=== PATIENT | male | born 1955 | race Caucasian/White ===

== ENCOUNTER → 2016-11-24 | Outpatient (CLI) | payer BC, OTHER ==
[~2016-11-24] VITALS: Ht 175.3 cm; Wt 59.4 kg
[~2016-11-24] MED LIST: ELIQUIS5 MG PO; FERROUS SULFAT325 M2 ORAL; FOLIC ACID-VIT1 EAC1 PO; LEVOTHYROXINE200 MCG IV; SYNTHROID88 MCG ORAL; TESTOSTERONE5 G1 MC; VITAMIN D1000 UNI1 ORAL; VITAMIN D5000 UNI1 PO
--- NOTE | 2016-11-24 14:07 | GI Initial Consult Note ---
History of Present Illness General Date patient seen: Nov 24, 2016 Time patient seen: 09:00 Referring physician: RISHABH Reason for Consultation: SBCE Present Illness HPI 61 year old male patient seen by Dr. Landeros at [facility] where he was being followed. The patient is s/p EGD/Colonoscopy on 08/15/2016 to evaluate anemia with hx of iron deficieny and portal vein thrombosis. Operative findings as followes: - medium sized HH - gastritis, s/p biopsy - one colonic polyp - internal/external hemorrhoids The patient presents today for SB capsule endoscopy to further evaluate anemia. s/p Peritoneal mass, biopsy >> moderately differentiated adenocarcinoma present ; see full report in chart. s/p Abdominal U/S >> large ascities, portal vein thrombosis, splenic vein thrombosis Home Meds Active Scripts Ferrous Sulfate (FERROUS SULFATE) 325 Mg Tablet., 325 MG ORAL DAILY, #30 TAB 0 Refills Prov:Nida Parmar N.P. 11/24/16 Reported Medications Testosterone (TESTOSTERONE) Unknown Strength Powder, MC DAILY, GM 11/24/16 Levothyroxine Sodium* (LEVOTHYROXINE SODIUM) Unknown Strength Vial, IV DAILY, VIAL 11/24/16 Cyanocobalamin/Fa/Pyridoxine (FOLIC ACID-VIT B6-VIT B12 TAB) 1 Each Tablet, PO QOD, TAB 11/24/16 Cholecalciferol (Vitamin D3)* (VITAMIN D*) 1,000 Unit Tablet, 5000 UNIT ORAL DAILY, #30 TAB 11/24/16 Apixaban (ELIQUIS) 5 Mg Tablet, 5 MG PO BID, TAB 11/24/16 Allergies: Coded Allergies: No Known Allergies (Unverified , 11/24/16) Patient History PMH Narrative hydrocele Vit D deficiency PSHx Undescended testicle, required surgery Social History: Denies: alcohol use, drug use, other, smoking Review of Systems All Other Systems: negative except mentioned in HPI Physical Exam T 98.3 BP 109/68 P 63 100 RA HT 5'9 WT 131 General Appearance: well appearing, no apparent distress, alert Head: normocephalic EENT: normal ENT inspection Neck: supple Respiratory: normal breath sounds, no respiratory distress Cardiovascular: normal rate Gastrointestinal: normal inspection, non tender, soft, normal bowel sounds Rectal: deferred Musculoskeletal: normal inspection, back normal Neurologic: normal inspection, alert, oriented x3 Psychiatric: normal inspection, judgement/insight normal, memory normal Skin: normal inspection, normal color, no rash Lymphatic: normal inspection, no adenopathy GI: Plan Problems: (1) Anemia (2) Portal vein thrombosis (3) Ascites (4) Iron deficiency (5) Abdominal pain Plan SBCE today pt to return tomorrow for hardware removal will contact patient s/p results RTC prn Seen with Dr. Landeros. Thank you for referring this kind patient. Nida Parmar N.P. Nov 24, 2016 14:07
[2016-11-24 16:01] VITALS: BP 109/68
== END | disposition home or self-care (01) ==
LOC: PAN 09:06
DX: I81 Portal vein thrombosis (principal); D64.9 Anemia, unspecified; R18.8 Other ascites; E61.1 Iron deficiency; R10.9 Unspecified abdominal pain

== ENCOUNTER → 2016-11-25 | Day surgery (SDC) | payer BC, OTHER ==
[2016-11-25] VITALS (8 sets, daily range): BP systolic 99–118; BP diastolic 55–73
[~2016-11-25] VITALS: Ht 175.3 cm; Wt 59.0 kg
[~2016-11-25] MED LIST changes: +Propofol 10mg/ml 20ml IV ONE
--- NOTE | 2016-11-25 09:34 | Pre-Procedure Note/Attestation ---
Pre-Procedure Note/Attestation Complete Prior to Procedure Planned Procedure: not applicable Procedure Narrative: egd/eus Indications for Procedure Pre-Operative Diagnosis: cancer Attestation I attest that I discussed the nature of the procedure; its benefits; risks and complications; and alternatives (and the risks and benefits of such alternatives ), prior to the procedure, with the patient (or the patient's legal factory representative). I attest that, if there was a reasonable possibility of needing a blood transfusion, the patient (or the patient's legal factory representative) was given the [facility] standardized written summary, pursuant to the Andi Clarington Blood Safety Act ([place] Health and Safety Code # 1645, as amended). I attest that I re-evaluated the patient just prior to the surgery and that there has been no change in the patient's H&P, except as documented below: REHANA COREAS Nov 25, 2016 09:34
--- NOTE | 2016-11-25 09:35 | Short Stay Surgery H&P ---
History of Present Illness History of Present Illness Chief Complaint cancer HPI Edwin Schwartz is a 61 year old male who was admitted on for Abdominal Pain / Poor Iv Access Patient History Allergies: Coded Allergies: No Known Allergies (Unverified , 11/24/16) PAST MEDICAL HISTORY: (1) Portal vein thrombosis (2) Iron deficiency (3) Anemia (4) Ascites (5) Abdominal pain Past Surgeries: Social History: Medication History Scheduled Apixaban (Eliquis), 5 MG PO DA, (Reported) Cholecalciferol (Vitamin D3) (Vitamin D), 5,000 UNIT PO DA, (Reported) Levothyroxine Sodium* (Synthroid*), 88 MCG ORAL DAILY, (Reported) Discontinued Medications Apixaban (Eliquis), 5 MG PO BID, (Reported) Discontinued Reason: MD discontinued med Cholecalciferol (Vitamin D3)* (Vitamin D*), 5,000 UNIT ORAL DAILY, (Reported) Discontinued Reason: MD discontinued med Cyanocobalamin/Fa/Pyridoxine (Folic Acid-Vit B6-Vit B12 Tab), PO QOD, (Reported) Discontinued Reason: MD discontinued med Ferrous Sulfate (Ferrous Sulfate), 325 MG ORAL DAILY Discontinued Reason: MD discontinued med Ferrous Sulfate (Ferrous Sulfate), 325 MG ORAL DAILY, (Reported) Discontinued Reason: MD discontinued med Levothyroxine Sodium* (Levothyroxine Sodium), Unknown Dose IV DAILY, (Reported) Discontinued Reason: Pt stopped taking med Testosterone (Testosterone), Unknown Dose MC DAILY, (Reported) Discontinued Reason: MD discontinued med Review of Systems Cardiovascular: Reports: no symptoms Respiratory: Reports: no symptoms Skeletal: Reports: no symptoms Gastrointestinal: Reports: no symptoms Genitourinary: Reports: no symptoms Neurologic: Reports: no symptoms Endocrine: Reports: no symptoms Hematologic: Reports: no symptoms Physical Exam Vital Signs Last Vital Signs Date Time Temp Pulse Resp B/P Pulse Ox O2 Delivery O2 Flow Rate FiO2 11/25/16 08:44 97.2 67 20 118/71 100 Room Air Skin: normal HENT: normal Heart: normal Lungs: normal Abdomen: normal Extremities: normal Plan Plan of Care egd/eus Final Diagnosis: Attestation Are the patient's medical conditions optimized for surgery? Attestation Response: yes REHANA COREAS Nov 25, 2016 09:35
--- NOTE | 2016-11-25 09:41 | Pre-Procedure Note/Attestation ---
Pre-Procedure Note/Attestation Complete Prior to Procedure Planned Procedure: not applicable Procedure Narrative: enteroscopy Indications for Procedure Pre-Operative Diagnosis: cancer Attestation I attest that I discussed the nature of the procedure; its benefits; risks and complications; and alternatives (and the risks and benefits of such alternatives ), prior to the procedure, with the patient (or the patient's legal outside sales account representative). I attest that, if there was a reasonable possibility of needing a blood transfusion, the patient (or the patient's legal outside sales account representative) was given the [facility] standardized written summary, pursuant to the Andi Lolis Blood Safety Act ([place] Health and Safety Code # 1645, as amended). I attest that I re-evaluated the patient just prior to the surgery and that there has been no change in the patient's H&P, except as documented below: REHANA COREAS Nov 25, 2016 09:41
--- NOTE | 2016-11-25 10:33 | Anethesia Preoperative Eval ---
Anesthesia Pre-op PMH/ROS General Date of Evaluation: Nov 25, 2016 Time of Evaluation: 09:25 Anesthesiologist: melani ASA Score: ASA 3 Mallampati Score Class I : Soft palate, uvula, fauces, pillars visible Class II: Soft palate, uvula, fauces visible Class III: Soft palate, base of uvula visible Class IV: Only hard plate visible Mallampati Classification: Class II Surgeon: cliff Diagnosis: peritoneal mass, Ca Surgical Procedure: enterocopy, EUS Anesthesia History: none Allergies: Coded Allergies: No Known Allergies (Unverified , 11/24/16) Past Medical History Pulmonary: Reports: other - sleep apnea Gastrointestinal/Genitourinary: Reports: GERD, other - ascites Anesthesia Pre-op Phys. Exam Physician Exam Last Vital Signs Date Time Temp Pulse Resp B/P Pulse Ox O2 Delivery O2 Flow Rate FiO2 11/25/16 08:44 97.2 67 20 118/71 100 Room Air Airway Exam Mallampati Score: Class II Teeth: intact Anesthesia Pre-op A/P Risk Assessment & Plan Plan: propofol Status Change Before Surgery: Gregory Valenzuela MD Nov 25, 2016 10:33
--- NOTE | 2016-11-25 10:34 | Immediate Post-Op Evaluation ---
Immediate Post-Op Evalulation Immediate Post-Op Evalulation Date of Evaluation: Nov 25, 2016 Time of Evaluation: 10:48 IV Fluids: 700 Blood Pressure Systolic: 100 Blood Pressure Diastolic: 68 Pulse Rate: 80 Respiratory Rate: 19 O2 Sat by Pulse Oximetry: 99 Temperature (Fahrenheit): 98.5 Pain Score (1-10): 0 Nausea: No Vomiting: No Complications none Patient Status: awake, patent, none Hydration Status: adequate Gregory Tanner MD Nov 25, 2016 10:33
--- NOTE | 2016-11-25 10:37 | 48 Hour Post Anesthesia Eval ---
Post Anesthesia Evaluation Date of Evaluation: Nov 25, 2016 Time of Evaluation: 11:15 Blood Pressure Systolic: 105 0: 60 Pulse Rate: 79 Respiratory Rate: 24 Temperature (Fahrenheit): 98.3 O2 Sat by Pulse Oximetry: 100 Airway: patent Nausea: No Vomiting: No Pain Intensity: 0 Hydration Status: adequate Cardiopulmonary Status: stable Mental Status/LOC: patient returned to baseline Follow-up Care/Observations: n/a Post-Anesthesia Complications: tolerated well Follow-up care needed: ready to discharge Gregory Tanner MD Nov 25, 2016 10:37
--- NOTE | 2016-11-25 10:39 | Endoscopy Procedure Note ---
Endoscopy Procedure Note Indication for Procedure: cancer Procedures Performed: other - EUS/enteroscopy Operative Findings/Diagnosis: ascites Specimen: none Pt Tolerated Procedure Well: Yes Estimated Blood Loss: none Anesthesiologist: melani Anesthesia: MAC Implant(s) used?: No 50 yrs or older w/o bx or poly: Not Applicable 10yrs. F/U not recommended: Not Applicable REHANA COREAS Nov 25, 2016 10:39
--- NOTE | 2016-11-25 21:18 | Procedure Note ---
DATE OF PROCEDURE: 11/25/2016 SURGEON: Michelle Wade PROCEDURE: endoscope and endoscopic ultrasound. ANESTHESIOLOGIST: Gregory Tanner M.D. INSTRUMENT: Olympus adult flexible EUS scope and . INDICATION: Malignancy of unknown source. REASON FOR PROCEDURE: The procedure, risks, benefits, and possible consequences, including hemorrhage, aspiration, perforation and infection, and alternative treatments, were explained to the patient/legal guardian by Dr. Kwame Landeros and the patient/legal guardian understood and accepted these risks. PROCEDURE: After informed consent was obtained and the patient was adequately sedated. First, endoscope was advanced from mouth into the proximal jejunum unfortunately given the patient had ascites and was looping in the stomach. I did not want to push too hard and cause perforation, so we went all the way to the ligament of Treitz but we were able to see the whole duodenum and may be proximal portion of the duodenum first. There was no obvious mass seen in the small intestine as far as event and also in the stomach. The patient had diffuse gastritis. There was evidence of hiatal hernia. No evidence of any significant esophagitis. At this time, the endoscope was retrieved and the EUS radial scope was introduced. Starting scanning at GE junction, we did not see any obvious celiac axis adenopathy. Pancreatic parenchyma was seen in the body and tail was very normal. No evidence of any mass, cyst, or any pathology. Pancreatic duct was not dilated. Maximal dimensions was in the genu of the pancreas, which measured about 2 mm. There was evidence of large ascites with evidence of carcinomatosis and ascites. The scope was advanced into the duodenal bulb, second portion of duodenum, and gallbladder was seen without any obvious mass or any stone in it. The head of the pancreas was carefully examined. There was no pancreatic head mass or any other lesion in the head of the pancreas. The limited view of the left hepatic lobe did not show any obvious metastasis to the liver. The patient tolerated the procedure without any complication. SUMMARY OF FINDINGS: 1. Normal small intestine as far as the endoscope was advanced. 2. Gastritis. 3. Hiatal hernia. 4. Large ascites with carcinomatosis. 5. Normal pancreas with pancreatic duct. 6. Normal gallbladder. 7. Normal left hepatic lobe was limited examination normal. RECOMMENDATIONS: The patient had a capsule endoscopy done today. We will follow the results of the capsule. The patient to be seen by Dr. Paula for possible chemotherapy next week . I want to thank, Dr. Luis Paula, for this kind referral . Kwame Landeros M.D. DR: Christy JOB#: [id number] CC: Luis Paula M.D.; Fax#: [phone]
== END | disposition home or self-care (01) ==
LOC: GAS 07:25
DX: C80.1 Malignant (primary) neoplasm, unspecified (principal); R18.8 Other ascites; C80.0 Disseminated malignant neoplasm, unspecified; K29.70 Gastritis, unspecified, without bleeding; K44.9 Diaphragmatic hernia without obstruction or gangrene; K21.9 Gastro-esophageal reflux disease without esophagitis; G47.30 Sleep apnea, unspecified; D50.9 Iron deficiency anemia, unspecified; Z86.718 Personal history of other venous thrombosis and embolism
CPT/HCPCS: 43237; J2704; 94003; 94150